=== PATIENT | male | born 1990 | race Hispanic/Latino ===

== ENCOUNTER 2017-07-08 00:38 | Emergency (ER) | payer SELFPAY ==
[2017-07-08 01:52] LABS: AMPHET/METH SCREEN,URINE NEGATIVE (NEGATIVE); BARBITURATE SCREEN, URINE NEGATIVE (NEGATIVE); BENZODIAZEPINES SCREEN,URINE NEGATIVE (NEGATIVE); CANNABINOID SCREEN,URINE NEGATIVE (NEGATIVE); COCAINE SCREEN,URINE NEGATIVE (NEGATIVE); OPIATE SCREEN,URINE NEGATIVE (NEGATIVE); PHENCYCLIDINE SCREEN,URINE NEGATIVE (NEGATIVE)
== END 2017-07-08 02:13 | disposition home or self-care (01) ==
LOC: EDH 00:38
DX: R07.89 Other chest pain (principal); R06.02 Shortness of breath
CPT/HCPCS: 71045; 80305; 93005

== ENCOUNTER 2017-10-02 03:32 | Emergency (ER) | payer OTHER ==
[2017-10-02] MEDS ORDERED: CEFTRIAXONE SODIUM 500 MG VIAL ONE (04:39)
[2017-10-02] MEDS ORDERED: LIDOCAINE HCL-MPF 1% 2ML VIAL ONE (04:39)
[2017-10-02] MEDS ORDERED: METRONIDAZOLE 500 MG TABLET ONE (04:39)
[2017-10-02] MEDS ORDERED: AZITHROMYCIN 250 MG TABLET PO ONE (04:40)
== END 2017-10-02 05:30 | disposition home or self-care (01) ==
LOC: EDH 03:32
DX: A56.8 Sexually transmitted chlamydial infection of other sites (principal)
CPT/HCPCS: 96372; 99283; J0696; J3490

== ENCOUNTER 2017-10-27 11:46 | Emergency (ER) | payer SELFPAY ==
[2017-10-27 12:16] LABS: APPEARANCE,URINE Clear (CLEAR); BILIRUBIN,URINE Negative (NEGATIVE); COLOR,URINE Yellow (YELLOW); GLUCOSE, URINE (UA) Negative (NEGATIVE); KETONES,URINE Trace mg/dL (NEGATIVE); LEUKOCYTE ESTERASE ,URINE Negative (NEGATIVE); NITRATE,URINE Negative (NEGATIVE); OCCULT BLOOD,URINE Negative (NEGATIVE); PH,URINE 5.5 (5.0-8.0); PROTEIN,URINE POS 1+ (NEGATIVE)
[2017-10-27 12:20] LABS: BACTERIA,URINE Rare /HPF (None Seen); MUCUS,URINE Moderate LPF (None Seen); SQUAMOUS EPITHELIAL CELL,UR Rare /HPF (0-2); WBC,URINE 0-1 /HPF (0-1)
[2017-10-27 12:23] LABS: AMPHET/METH SCREEN,URINE NEGATIVE (NEGATIVE); BARBITURATE SCREEN, URINE NEGATIVE (NEGATIVE); BENZODIAZEPINES SCREEN,URINE NEGATIVE (NEGATIVE); CANNABINOID SCREEN,URINE NEGATIVE (NEGATIVE); COCAINE SCREEN,URINE NEGATIVE (NEGATIVE); OPIATE SCREEN,URINE NEGATIVE (NEGATIVE); PHENCYCLIDINE SCREEN,URINE NEGATIVE (NEGATIVE)
== END 2017-10-27 12:33 | disposition home or self-care (01) ==
LOC: EDH 11:46
DX: F41.1 Generalized anxiety disorder (principal); R07.89 Other chest pain
CPT/HCPCS: 80305; 81001; 93005

== ENCOUNTER 2018-07-03 15:19 | Emergency (ER) | payer OTHER ==
[2018-07-03 17:14] LABS: BASOPHILS % (AUTO) 0.7 % (0.0-5.0); EOSINOPHILS % (AUTO) 5.1 % (0.0-8.0); HEMATOCRIT 42.6 % (42-54); LYMPHOCYTES % (AUTO) 21.3 % (21.0-51.0); MEAN CORPUSCULAR HEMOGLOBIN 28.4 pg (27.0-33.0); MEAN CORPUSCULAR VOLUME 86.2 fL (79-99); MONOCYTES % (AUTO) 8.1 % (3.0-13.0); NEUTROPHILS % (AUTO) 64.8 % (40.0-77.0); PLATELET COUNT (AUTO) 165 K/uL (130-400); RED BLOOD CELL COUNT(AUTO) 4.95 MIL/uL (4.50-6.20); RED CELL DISTRIBUTION WIDTH 14.1 % (11.0-15.5); WHITE BLOOD COUNT (AUTO) 6.6 K/uL (4.8-10.8)
[2018-07-03 17:24] LABS: POTASSIUM 4.8 mmol/L (3.5-5.1)
[2018-07-03 17:35] LABS: APPEARANCE,URINE Clear (CLEAR); BILIRUBIN,URINE Negative (NEGATIVE); COLOR,URINE Yellow (YELLOW); GLUCOSE, URINE (UA) Negative (NEGATIVE); KETONES,URINE Negative (NEGATIVE); LEUKOCYTE ESTERASE ,URINE Negative (NEGATIVE); NITRATE,URINE Negative (NEGATIVE); OCCULT BLOOD,URINE Negative (NEGATIVE); PH,URINE 8.5 (5.0-8.0); PROTEIN,URINE Negative (NEGATIVE); UROBILINOGEN,URINE 0.2 mg/dL (0.2-1.0)
[2018-07-03 17:43] LABS: AMPHET/METH SCREEN,URINE NEGATIVE (NEGATIVE); BARBITURATE SCREEN, URINE NEGATIVE (NEGATIVE); BENZODIAZEPINES SCREEN,URINE NEGATIVE (NEGATIVE); CANNABINOID SCREEN,URINE NEGATIVE (NEGATIVE); COCAINE SCREEN,URINE NEGATIVE (NEGATIVE); OPIATE SCREEN,URINE NEGATIVE (NEGATIVE); PHENCYCLIDINE SCREEN,URINE NEGATIVE (NEGATIVE)
== END 2018-07-03 18:30 | disposition home or self-care (01) ==
LOC: EDH 15:19
DX: F41.9 Anxiety disorder, unspecified (principal); R42 Dizziness and giddiness; F32.9 Major depressive disorder, single episode, unspecified; Z72.0 Tobacco use
CPT/HCPCS: 36415; 71045; 80048; 80305; 81003; 85025; 93005

== ENCOUNTER 2018-10-29 04:32 | Emergency (ER) | payer OTHER ==
[2018-10-29] MEDS ORDERED: DiphenhydrAMINE HCL 50 MG/ML VIAL ONE (05:26)
[2018-10-29] MEDS ORDERED: CEFTRIAXONE SODIUM 500 MG VIAL ONE (05:26)
[2018-10-29] MEDS ORDERED: LIDOCAINE HCL-MPF 1% 2ML VIAL ONE (05:27)
== END 2018-10-29 05:42 | disposition home or self-care (01) ==
LOC: EDH 04:32
DX: F41.9 Anxiety disorder, unspecified (principal); A64 Unspecified sexually transmitted disease; F32.9 Major depressive disorder, single episode, unspecified; Z72.0 Tobacco use
CPT/HCPCS: 87486; 87797; 96372 ×2; 99284; J0696; J1200; J3490

== ENCOUNTER 2019-04-23 03:43 | Emergency (ER) | payer OTHER ==
[2019-04-23] MEDS ORDERED: SODIUM CHLORIDE 0.9% 1000ML 1,000 ML IV ONE (04:28)
[2019-04-23] MEDS ORDERED: DiphenhydrAMINE HCL 50 MG/ML VIAL ONE (04:28)
== END 2019-04-23 05:24 | disposition home or self-care (01) ==
LOC: EDH 03:43
DX: F45.8 Other somatoform disorders (principal); F41.1 Generalized anxiety disorder; F32.9 Major depressive disorder, single episode, unspecified; Z72.0 Tobacco use; Z79.899 Other long term (current) drug therapy
CPT/HCPCS: 96374; 99284; J1200; J7030

== ENCOUNTER 2022-01-18 11:36 | Emergency (ER) | payer OTHER ==
[~2022-01-18] VITALS: Ht 182.9 cm; Wt 87.5 kg
[2022-01-18 11:37] VITALS: BP 139/93
[2022-01-18] MEDS ORDERED: OSEL75 PO (13:15)
== END 2022-01-18 13:52 | disposition home or self-care (01) ==
LOC: EDH 11:36
DX: J10.1 Influenza due to other identified influenza virus with other respiratory manifestations (principal); F41.9 Anxiety disorder, unspecified; Z20.822 Contact with and (suspected) exposure to COVID-19
CPT/HCPCS: 99284; 87635; 87880; 87804 ×2; 93005; C9803

== ENCOUNTER 2024-03-05 14:27 | Emergency (ER) | payer SELFPAY ==
[~2024-03-05] VITALS: Ht 182.9 cm; Wt 85.3 kg
[~2024-03-05 14:27] MED LIST: OSEL75 PO
[2024-03-05 14:28] VITALS: BP 129/85; PULSE 99; RESP 16; TEMP 98.6; O2SAT 98
[2024-03-05 15:02] LABS: INFLUENZA TYPE A Negative For Type A (NEGATIVE); INFLUENZA TYPE B Negative For Type B (NEGATIVE)
[2024-03-05 15:04] LABS: SARS-CoV-2, RNA, NAAT NEGATIVE SARS CoV-2 (NEGATIVE)
[2024-03-05 15:13] LABS: RAPID GROUP A STREP positive (NEGATIVE)
--- NOTE | 2024-03-05 15:18 | HMCIMG ---
INDICATION: cough TECHNIQUE: CHEST 1VW COMPARISON: 07/03/2018 FINDINGS/IMPRESSION: Prominent bilateral interstitial markings which may represent bronchitis or vascular congestion in the proper clinical setting. Cardiac silhouette is within normal limits. Mild degenerative changes of the spine. The visualized upper abdomen appears unremarkable.
[2024-03-05] MEDS ORDERED: PRED20TA3 PO (15:29)
[2024-03-05] MEDS ORDERED: AZIT250T9 PO (15:29)
--- NOTE | 2024-03-05 15:29 | ERN ---
ED Note History of Present Illness Stated Complaint: COUGH, FEVER Chief Complaint: Cough Time Seen by MD: 14:29 Dictation: 33-year-old male no past medical history presenting to the emergency department with one week of cold congestion and body aches. 12/03 constant with positive sick contacts at home. Allergies: Coded Allergies: No Known Allergies (Unverified Allergy, Unknown, 01/18/22) Home Meds Active Scripts Oseltamivir Phosphate (Tamiflu) 75 Mg Cap, 75 MG PO BID for 5 Days, #10 CAP Prov:LUCIA DUBON [employer] 01/18/22 Past Medical History Past Medical History: Anxiety Surgical History: None Review of System Dictation Constitutional: Per HPI Eyes: Negative for injury, pain,redness, and discharge ENT: Negative for injury,pain or swelling Cardiovascular: Negative for chest pain, palpitations, and edema Respiratory: Per HPI Abdomen/GI: Negative for abdominal pain, nausea, vomiting, diarrhea, and constipation Back: Negative for injury and pain : Negative for injury, bleeding and discharge MS/Extremity: Negative for injury and deformity Skin: Negative for rash, and discoloration Neuro: Negative for headache, weakness, numbness, tingling, and seizure Psych: Negative for suicide ideation, homicidal ideation, and hallucinations Initial Vital Sign VS Vital Signs Date Time Temp Pulse Resp B/P (MAP) Pulse Ox O2 Delivery O2 Flow Rate FiO2 03/05/24 14:28 98.6 99 16 129/85 98 Room Air 0 03/05/24 14:28 21 Physical Exam Dictation General: awake, alert, NAD Head/Face: Normocephalic, atraumatic Eyes: PERRL, EOMI, vision at baseline ENT: oral cavity clear, TMs clear, erythema to the posterior pharynx Neck: Trachea midline, supple, no nuchal rigidity Cardiovascular: RRR, normal S1/S2, No MRGs, no JVD Respiratory: CTAB, no respiratory distress, No rales or wheezes Abdomen: Soft, non-tender, non-distended, normal bowel sounds, no guarding or rebound. Skin: Warm, dry, normal turgor, no rash MS/Extremity: Pulses equal, no cyanosis, neurovascular intact, FROM Neuro: COAx4, GCS 15, strength 5/5, CN 2-12 intact, normal cerebellar exam, normal gait, Psych: Normal behavior, mood, and affect normal Results (Laboratory/Radiology) Laboratory/Radiology Laboratory Tests Test 03/05/24 14:30 Influenza Type A Antigen Negative For Type A Influenza Type B Antigen Negative For Type B SARS-CoV-2, RNA, NAAT NEGATIVE SARS CoV-2 Group A Streptococcus Rapid positive (NEGATIVE) *A Labs Reviewed?: Yes ED Course ED Course Orders Procedure Category Date Status Time Covid Rna Naat LAB 03/05/24 Complete 14:30 Influenza Type A & B, LAB 03/05/24 Complete Rapid 14:30 Rapid (Group A Strep) LAB 03/05/24 Complete 14:30 Chest 1vw RAD 03/05/24 Resulted 14:49 Vital Signs Date Time Temp Pulse Resp B/P (MAP) Pulse Ox O2 Delivery O2 Flow Rate FiO2 03/05/24 14:28 98.6 99 16 129/85 98 Room Air* 0 21 03/05/24 14:28 98.6 99 16 129/85 98 Room Air 0 Medical Decision Making MDM MDM: Differential diagnosis: Rationale: Tests considered and ordered secondary to shared decision making include: Previous outside records reviewed: Old ER visits. Risk of complication and/or morbidity or mortality of patient management: None Medications-Per medication reconciliation Need for hospitalization: Patient does not meet criteria for hospitalization. Need for emergency major/minor surgery: No There are no social concerns with this patient. Prescription drug management Prescriptions will include symptomatic care Patient's prior external medical records from other ER visits were reviewed by me as indicated. Prior testing and results from previous visits were reviewed. Prior tests were taken into account with medical decision making and resource utilization, independent historian/historians were used to obtain complete medical history. I independently interpreted the test that were performed, results were reviewed by me and considered findings on radiology if ordered. Medical management and examination interpretation discussions were had by me with other qualified healthcare professionals as indicated for the patient's care. 33-year-old with strep, stable exam vital signs stable prescriptions given stable for discharge. DX & DISP Disposition: Discharge Departure Impression: Primary Impression: Acute pharyngitis Condition: Stable Scripts Prednisone (Prednisone) 20 Mg Tablet 1 TAB PO DAILY for 5 Days, #5 TAB 0 Refills TAKE 1 TAB BY MOUTH THREE TIMES PER DAY X3 DAYS, THEN TAKE 1 TAB BY MOUTH TWICE A DAY X2 DAYS, THEN TAKE 1 TAB BY MOUTH ONCE A DAY X1 DAY. Prov: ERIC THORPE MD 03/05/24 Azithromycin (Azithromycin) 250 Mg Tablet 250 MG PO AD for cough for 5 Days, #6 TAB Prov: ERIC THORPE MD 03/05/24 Referrals: KEVIN ANN (PCP) ERIC THORPE MD Mar 05, 2024 15:29
[2024-03-05] MEDS: cefTRIAXone 1G VIAL IM ONE (15:41)
== END 2024-03-05 15:58 | disposition home or self-care (01) ==
LOC: EDH 14:27
DX: J02.9 Acute pharyngitis, unspecified (principal); F41.9 Anxiety disorder, unspecified; Z20.822 Contact with and (suspected) exposure to COVID-19
CPT/HCPCS: 99284; 71045; 87635; 87880; 87804 ×2; 96372; J0696

== ENCOUNTER 2024-10-14 04:00 | Emergency (ER) | payer SELFPAY ==
[~2024-10-14] VITALS: Ht 182.9 cm; Wt 81.6 kg
[~2024-10-14 04:00] MED LIST changes: +AZIT250T9 PO; +PRED20TA3 PO
[2024-10-14 04:01] VITALS: BP_DIAS 91
[2024-10-14 04:18] VITALS: BP_SYST 0; PULSE 75; RESP 18; TEMP 98.8; O2SAT 98
--- NOTE | 2024-10-14 04:32 | ERN ---
General Chief Complaint: Hemorrhoids Stated Complaint: RECTAL PAIN Time Seen by MD: 04:30 Source: patient History of Present Illness Initial Comments Healthy 34-year-old male with concerns about hemorrhoids. He has had a hemorrhoid on and off for several months now. It pops out when he is constipated and strains to have bowel movements. It pops back in again when he does not strain while defecating. He has changed his diet and that has helped. He comes here with a general concerns about hemorrhoids, potential problems with hemorrhoids and indications for surgery. He shows me a picture that and I can not tell if it is an prolapsed internal hemorrhoid or an external hemorrhoid. Allergies: Coded Allergies: No Known Allergies (Unverified Allergy, Unknown, 01/18/22) Home Meds Active Scripts Prednisone (Prednisone) 20 Mg Tablet, 1 TAB PO DAILY for 5 Days, #5 TAB 0 Refills TAKE 1 TAB BY MOUTH THREE TIMES PER DAY X3 DAYS, THEN TAKE 1 TAB BY MOUTH TWICE A DAY X2 DAYS, THEN TAKE 1 TAB BY MOUTH ONCE A DAY X1 DAY. Prov:ERIC THORPE MD 03/05/24 Azithromycin (Azithromycin) 250 Mg Tablet, 250 MG PO AD for cough for 5 Days, #6 TAB Prov:ERIC THORPE MD 03/05/24 Oseltamivir Phosphate (Tamiflu) 75 Mg Cap, 75 MG PO BID for 5 Days, #10 CAP Prov:LUCIA DUBON NP 01/18/22 Past Medical History Past Medical History: Anxiety Past Surgical History: None ROS Dictation Review of systems is negative. No bright red blood per rectum no fevers no chills no diarrhea no constipation no shortness of breath no chest pain no abdominal pain Physical Exam Rectal Comment Patient has a known derm is healthy in appearance. There are no external hemorrhoids. And there was no prolapsed internal hemorrhoid. MDM I discussed with the patient that hemorrhoids are a relatively benign condition. They are not a precursor to cancer. Usually the symptoms are itching maybe painful maybe burning. Sometimes they can cause spotting of blood on toilet paper when cleaning herself after defecating. Sometimes the bleeding can be enough to cause anemia. They very rarely cause problems that mandate surgery. Indications for surgery could be a thrombosed external hemorrhoid. Strangulated prolapsed internal hemorrhoids. The patient has no surgical indications for hemorrhoidectomy now. I discussed with him a high roughage diet and stool softeners. Discharge the patient from the ED. ED Course Vital Signs Date Time Temp Pulse Resp B/P (MAP) Pulse Ox O2 Delivery O2 Flow Rate FiO2 10/14/24 04:18 98.8 75 18 0/ 98 Room Air* 0 21 10/14/24 04:01 97.9 105 18 142/91 100 Room Air DX & DISP Disposition: Discharge Departure Impression: Primary Impression: Acute hemorrhoid Condition: Stable Additional Instructions: Please follow-up with your primary care physician who can give you a referral to General surgery if these hemorrhoids become too painful to endure or are causing too much bleeding. Referrals: SELF,REFERRAL (PCP) BRICE MYERS MD Oct 14, 2024 04:32
== END 2024-10-14 05:00 | disposition home or self-care (01) ==
LOC: EDH 04:00
DX: K64.9 Unspecified hemorrhoids (principal); F41.9 Anxiety disorder, unspecified; Z79.52 Long term (current) use of systemic steroids
CPT/HCPCS: 99281; 99282

== ENCOUNTER 2024-11-28 16:53 | Emergency (ER) | payer SELFPAY ==
[~2024-11-28] VITALS: Ht 182.9 cm
[2024-11-28 17:16] VITALS: BP 130/75; PULSE 75; RESP 16; TEMP 98.1; O2SAT 98
[2024-11-28 17:20] LABS: IMMATURE GRANULOCYTE ABSOLUTE 0.03 K/uL (0-1); NUCLEATED RED BLOOD CELLS 0.0 % (0.0-0.19); PLATELET COUNT (AUTO) 180 K/uL (130-400); RED BLOOD CELL COUNT(AUTO) 4.98 MIL/uL (4.50-6.20); RED CELL DISTRIBUTION WIDTH 13.7 % (11.0-15.5); WHITE BLOOD COUNT (AUTO) 7.8 K/uL (4.8-10.8)
[2024-11-28 17:28] LABS: CREATININE 1.0 mg/dL (0.5-1.3); GLOMERULAR FILTR. RATE CALC 101.0 mL/min (>90); GLUCOSE,RANDOM 106.0 mg/dL (70-105); SODIUM SERUM 141.0 mmol/L (136-145); UREA NITROGEN, BLOOD 11.0 mg/dL (7-18)
[2024-11-28 17:40] LABS: APPEARANCE,URINE CLEAR (CLEAR); GLUCOSE, URINE (UA) NEGATIVE (NEGATIVE); LEUKOCYTE ESTERASE ,URINE NEGATIVE Leu/uL (NEGATIVE); NITRATE,URINE NEGATIVE (NEGATIVE); OCCULT BLOOD,URINE NEGATIVE (NEGATIVE)
[2024-11-28 17:43] LABS: ADD UA MICROSCOPIC YES; SQUAMOUS EPITHELIAL CELL,UR RARE /HPF (0-2)
[2024-11-28] MEDS: 0.9%NACL 1000ML 1,000 ML IV STA (17:43)
--- NOTE | 2024-11-28 17:45 | HMCIMG ---
EXAM: CT Abdomen and Pelvis without Intravenous Contrast CLINICAL HISTORY: 34-year-old male left lower quadrant pain TECHNIQUE: Axial computed tomography images of the abdomen and pelvis without intravenous contrast. Dose reduction technique was used including one or more of the following: automated exposure control, adjustment of mA and kV according to patient size, and/or iterative reconstruction. CONTRAST: None COMPARISON: None provided. FINDINGS: LUNG BASES: No basilar airspace consolidation or pleural effusion. LIVER: Unremarkable. GALLBLADDER AND BILE DUCTS: Unremarkable. No calcified stone. No ductal dilation. PANCREAS: Unremarkable. SPLEEN: Unremarkable. ADRENAL GLANDS: Unremarkable. KIDNEYS, URETERS, AND BLADDER: Unremarkable. No hydronephrosis or nephrolithiasis. No ureteral or bladder calculi. STOMACH AND BOWEL: No obstruction. No wall thickening. No CT evidence of colitis or acute diverticulitis. Fat-containing lesion with fat stranding around the left colon, image number 59 of [id number], suggesting epiploic appendagitis. APPENDIX: Normal appendix. No CT evidence for appendicitis. PERITONEUM: No free fluid. No free air. LYMPH NODES: No lymphadenopathy. REPRODUCTIVE: Unremarkable as visualized. VASCULATURE: No aortic aneurysm. ABDOMINAL WALL AND SOFT TISSUES: Unremarkable. BONES: No fracture or suspicious osseous abnormality. IMPRESSION: 1. Findings consistent with epiploic appendagitis in the left lower quadrant. /[address]
[2024-11-28] MEDS ORDERED: NAPR-1180 PO (18:23)
--- NOTE | 2024-11-28 18:23 | ERN ---
ED Note History of Present Illness Stated Complaint: LLQ PAIN Chief Complaint: Abdominal Pain Time Seen by MD: 16:57 Time Seen by Midlevel: 17:00 Dictation: 34-year-old male coming in with complaints of left lower quadrant pain onset for the last 2-3 days. Denies any fever, nausea or vomiting or diarrhea. Denies any hematuria or dysuria. Allergies: Coded Allergies: No Known Allergies (Unverified Allergy, Unknown, 01/18/22) Home Meds Active Scripts Prednisone (Prednisone) 20 Mg Tablet, 1 TAB PO DAILY for 5 Days, #5 TAB 0 Refills TAKE 1 TAB BY MOUTH THREE TIMES PER DAY X3 DAYS, THEN TAKE 1 TAB BY MOUTH TWICE A DAY X2 DAYS, THEN TAKE 1 TAB BY MOUTH ONCE A DAY X1 DAY. Prov:ERIC THORPE MD 03/05/24 Azithromycin (Azithromycin) 250 Mg Tablet, 250 MG PO AD for cough for 5 Days, #6 TAB Prov:ERIC THORPE MD 03/05/24 Oseltamivir Phosphate (Tamiflu) 75 Mg Cap, 75 MG PO BID for 5 Days, #10 CAP Prov:LUCIA DUBON NP 01/18/22 Past Medical History Past Medical History: Anxiety Surgical History: None Review of System Dictation Constitutional: Negative for fever,chills, and weight loss Eyes: Negative for injury, pain,redness, and discharge ENT: Negative for injury,pain or swelling Cardiovascular: Negative for chest pain, palpitations, and edema Respiratory: Negative for shortness of breath, cough, and wheezing, Abdomen/GI: Left lower quadrant pain Back: Negative for injury and pain : Negative for injury, bleeding and discharge MS/Extremity: Negative for injury and deformity Skin: Negative for rash, and discoloration Neuro: Negative for headache, weakness, numbness, tingling, and seizure Psych: Negative for suicide ideation, homicidal ideation, and hallucinations Review of Systems: was completed Initial Vital Sign VS Vital Signs Date Time Temp Pulse Resp B/P (MAP) Pulse Ox O2 Delivery O2 Flow Rate FiO2 11/28/24 16:54 98.4 80 16 130/77 98 Room Air 0 11/28/24 17:16 21 Physical Exam Dictation General: awake, alert, NAD Head/Face: Normocephalic, atraumatic Eyes: PERRL, EOMI, vision at baseline ENT: oral cavity clear, TMs clear, no signs of infection Neck: Trachea midline, supple, no nuchal rigidity Cardiovascular: RRR, normal S1/S2, No MRGs, no JVD Respiratory: CTAB, no respiratory distress, No rales or wheezes Abdomen: Soft, non-tender, non-distended, normal bowel sounds, no guarding or rebound. Skin: Warm, dry, normal turgor, no rash MS/Extremity: Pulses equal, no cyanosis, neurovascular intact, FROM Neuro: COAx4, GCS 15, strength 5/5, CN 2-12 intact, normal cerebellar exam, normal gait, Psych: Normal behavior, mood, and affect normal Results (Laboratory/Radiology) Laboratory/Radiology Laboratory Tests Test 11/28/24 17:12 11/28/24 17:25 White Blood Count 7.8 K/uL (4.8-10.8) Red Blood Count 4.98 MIL/uL (4.50-6.20) Hemoglobin 14.1 g/dL (14.0-18.0) Hematocrit 42.6 % (42-54) Mean Corpuscular Volume 85.5 fL (79-99) Mean Corpuscular Hemoglobin 28.3 pg (27.0-33.0) Mean Corpuscular Hemoglobin Concent 33.1 g/dL (32.0-36.0) Red Cell Distribution Width 13.7 % (11.0-15.5) Platelet Count 180 K/uL (130-400) Mean Platelet Volume 11.1 fL (7.5-10.5) H Immature Granulocyte % (Auto) 0.4 % (0-1) Neutrophils (%) (Auto) 60.2 % (40.0-77.0) Lymphocytes (%) (Auto) 27.2 % (21.0-51.0) Monocytes (%) (Auto) 6.9 % (3.0-13.0) Eosinophils (%) (Auto) 4.7 % (0.0-8.0) Basophils (%) (Auto) 0.6 % (0.0-5.0) Neutrophils # (Auto) 4.7 K/uL (1.8-7.7) Lymphocytes # (Auto) 2.1 K/uL (1.0-4.8) Monocytes # (Auto) 0.5 K/uL (0.1-1.0) Eosinophils # (Auto) 0.37 K/uL (0.00-0.70) Basophils # (Auto) 0.05 K/uL (0.00-0.20) Absolute Immature Granulocyte (auto 0.03 K/uL (0-1) Nucleated Red Blood Cells 0.0 % (0.0-0.19) Sodium Level 141 mmol/L (136-145) Potassium Level 3.8 mmol/L (3.5-5.1) Chloride Level 104 mmol/L (101-111) Carbon Dioxide Level 33 mmol/L (21-32) H Blood Urea Nitrogen 11 mg/dL (7-18) Creatinine 1.0 mg/dL (0.5-1.3) Glomerular Filtration Rate Calc 101 mL/min (>90) Random Glucose 106 mg/dL (70-105) H Total Calcium 8.5 mg/dL (8.5-10.1) Urine Color YELLOW (YELLOW) Urine Appearance CLEAR (CLEAR) Urine pH 5.5 (5.0-8.0) Urine Specific [place] 1.029 (1.001-1.031) Urine Protein 20 mg/dL (NEGATIVE) H Urine Glucose (UA) NEGATIVE mg/dL (NEGATIVE) Urine Ketones NEGATIVE mg/dL (NEGATIVE) Urine Occult Blood NEGATIVE (NEGATIVE) Urine Nitrate NEGATIVE (NEGATIVE) Urine Bilirubin NEGATIVE mg/dL (NEGATIVE) Urine Urobilinogen 0.2 mg/dL (0.2-1.0) Urine Leukocyte Esterase NEGATIVE Venkatesh/uL Urine RBC 2-5 /HPF (0-1) H Urine WBC 0-1 /HPF (0-1) Urine Squamous Epithelial Cells RARE /HPF (0-2) Urine Bacteria RARE /HPF (None Seen) Labs Reviewed?: Yes CT Scan Comment: [place] [id number] [id number] IMAGING REPORT Signed PATIENT: ALFREDA GREY MR#: [id number] : 1990 SEX: M AGE: 34 LOCATION: ED ORDER 02 STATUS: REG ER REPORT#: [id number] SERVICE [id number] REASON: llq pain ORDERING PHYSICIAN: MONICA PIERSON NP PROCEDURE: ABD PEL WO - CT ABDOMEN/PELVIS W/O CONTRAST EXAM: CT Abdomen and Pelvis without Intravenous Contrast CLINICAL HISTORY: 34-year-old male left lower quadrant pain TECHNIQUE: Axial computed tomography images of the abdomen and pelvis without intravenous contrast. Dose reduction technique was used including one or more of the following: automated exposure control, adjustment of mA and kV according to patient size, and/or iterative reconstruction. CONTRAST: None COMPARISON: None provided. FINDINGS: LUNG BASES: No basilar airspace consolidation or pleural effusion. LIVER: Unremarkable. GALLBLADDER AND BILE DUCTS: Unremarkable. No calcified stone. No ductal dilation. PANCREAS: Unremarkable. SPLEEN: Unremarkable. ADRENAL GLANDS: Unremarkable. KIDNEYS, URETERS, AND BLADDER: Unremarkable. No hydronephrosis or nephrolithiasis. No ureteral or bladder calculi. STOMACH AND BOWEL: No obstruction. No wall thickening. No CT evidence of colitis or acute diverticulitis. Fat-containing lesion with fat stranding around the left colon, image number 59 of [id number], suggesting epiploic appendagitis. APPENDIX: Normal appendix. No CT evidence for appendicitis. PERITONEUM: No free fluid. No free air. LYMPH NODES: No lymphadenopathy. REPRODUCTIVE: Unremarkable as visualized. VASCULATURE: No aortic aneurysm. ABDOMINAL WALL AND SOFT TISSUES: Unremarkable. BONES: No fracture or suspicious osseous abnormality. IMPRESSION: 1. Findings consistent with epiploic appendagitis in the left lower quadrant. /[place] DICTATED BY: YESIKA MASTERS MD DATE: 11/28/241843 ELECTRONICALLY SIGNED BY: YESIKA MASTERS MD DATE: 11/28/241843 ED Course ED Course Orders Procedure Category Date Status Time Cbc With Differential LAB 11/28/24 Complete 17: Basic Metabolic Panel LAB 11/28/24 Complete 17:01 Urinalysis Profile LAB 11/28/24 Complete 17:01 Ct Abdomen/Pelvis W/O CT 11/28/24 Resulted Contrast 17:01 0.9%Nacl 1000ml (Ns PHA 11/28/24 Complete 1000ml) 17:01 Morphine 2mg Syg PHA 11/28/24 Complete (Morphine 2mg Syg) 17:01 Ondansetron 4mg Inj PHA 11/28/24 Complete (Zofran 4mg Inj) 17:01 Current Medications Medications (Trade) Dose Ordered Sig/Jeanne Route PRN Reason Start Time Stop Time Status Last Admin Dose Admin Morphine Sulfate (morPHINE 2MG SYG) 2 mg ONCE STAT IVP 11/28/24 17:01 11/28/24 17:06 DC 11/28/24 17:43 Ondansetron HCl (zoFRAN 4MG INJ) 4 mg ONCE STAT IVP 11/28/24 17:01 11/28/24 17:06 DC 11/28/24 17:43 Sodium Chloride 1,000 ml @ 1,000 mls/hr Q1H STAT IV 11/28/24 17:01 11/28/24 18:00 DC 11/28/24 17:43 Vital Signs Date Time Temp Pulse Resp B/P (MAP) Pulse Ox O2 Delivery O2 Flow Rate FiO2 11/28/24 17:16 98.1 75 16 130/75 98 Room Air* 0 21 11/28/24 16:54 98.4 80 16 130/77 98 Room Air 0 Medical Decision Making MDM MDM:34-year-old male coming in with complaints of left lower quadrant pain onset for the last 2-3 days. Denies any fever, nausea or vomiting or diarrhea. Denies any hematuria or dysuria. Blood work unremarkable. CT scan shows epiploic appendagitis. Discussed with the patient this is not an emergency they came from follow up outpatient with PCP and I will prescribe him and says to take [id number]. Educated on signs and symptoms of return back to the emergency room and follow up with his PCP. Patient verbalized understanding, answered all questions. Differential diagnosis: Diverticulitis, diverticulosis, constipation, kidney stone Rationale: Tests considered and ordered secondary to shared decision making include: Previous outside records reviewed: Old ER visits. Risk of complication and/or morbidity or mortality of patient management: None Medications-Per medication reconciliation Need for hospitalization: Patient does not meet criteria for hospitalization. Need for emergency major/minor surgery: No There are no social concerns with this patient. Prescription drug management Prescriptions will include symptomatic care Patient's prior external medical records from other ER visits were reviewed by me as indicated. Prior testing and results from previous visits were reviewed. Prior tests were taken into account with medical decision making and resource utilization, independent historian/historians were used to obtain complete medical history. I independently interpreted the test that were performed, results were reviewed by me and considered findings on radiology if ordered. Medical management and examination interpretation discussions were had by me with other qualified healthcare professionals as indicated for the patient's care. DX & DISP Disposition: Discharge Departure Impression: Primary Impression: Epiploic appendagitis Condition: Stable Scripts Naproxen (Naprosyn) 500 Mg Tablet 500 MG PO BIDPC for 10 Days, #20 TAB 0 Refills Prov: MONICA PIERSON NP 11/28/24 Additional Instructions: Increase fluid intake stay hydrated. Take medication for pain as prescribed. Follow up with PCP. Return for the hospital if any worsening symptoms. Referrals: KEVIN ANN (PCP) Time of Disposition: 18:22 I have reviewed the case, and I agree with, Diagnosis and Plan MONICA PIERSON NP Nov 28, 2024 18:23
--- NOTE | 2024-11-28 18:27 | NUR ---
PT REFUSED MORPHIE AT TIME OF ADMINISTRATION
== END 2024-11-28 18:37 | disposition home or self-care (01) ==
LOC: EDH 16:53
DX: K63.89 Other specified diseases of intestine (principal); F41.9 Anxiety disorder, unspecified; Z79.52 Long term (current) use of systemic steroids; Z79.899 Other long term (current) drug therapy
CPT/HCPCS: 99285; 74176; 96374; 96375; 80048; 85025; 81001; 36415; J2270; J7030; J2405

== ENCOUNTER 2024-12-11 07:59 | Emergency (ER) | payer SELFPAY ==
[~2024-12-11] VITALS: Ht 182.9 cm; Wt 93.0 kg
[~2024-12-11 07:59] MED LIST changes: +NAPR-1180 PO
[2024-12-11 08:00] VITALS: TEMP 97.9
--- NOTE | 2024-12-11 08:27 | ERN ---
General Chief Complaint: Flank Pain Stated Complaint: FLANK PAIN, LLQ PAIN Time Seen by MD: 08:00 Source: patient History of Present Illness Initial Comments Patient is a 34-year-old male coming in complaining of left flank pain. Patient states that he was evaluated before and was told had "appendagitis". He states that has pain improved with the medication couple of days ago resurface the medication Allergies: Coded Allergies: No Known Allergies (Unverified Allergy, Unknown, 01/18/22) Home Meds Active Scripts Naproxen (Naprosyn) 500 Mg Tablet, 500 MG PO BIDPC for 10 Days, #20 TAB 0 Refills Prov:MONICA PIERSON NP 11/28/24 Prednisone (Prednisone) 20 Mg Tablet, 1 TAB PO DAILY for 5 Days, #5 TAB 0 Refills TAKE 1 TAB BY MOUTH THREE TIMES PER DAY X3 DAYS, THEN TAKE 1 TAB BY MOUTH TWICE A DAY X2 DAYS, THEN TAKE 1 TAB BY MOUTH ONCE A DAY X1 DAY. Prov:ERIC THORPE MD 03/05/24 Azithromycin (Azithromycin) 250 Mg Tablet, 250 MG PO AD for cough for 5 Days, #6 TAB Prov:ERIC THORPE MD 03/05/24 Oseltamivir Phosphate (Tamiflu) 75 Mg Cap, 75 MG PO BID for 5 Days, #10 CAP Prov:LUCIA DUBON CALLISTHENICS INSTRUCTOR 01/18/22 Past Medical History Past Medical History: Anxiety Past Surgical History: None ROS Dictation CONSTITUTIONAL: NO CHILLS, NO FEVER, NO WEAKNESS, NO DIAPHORESIS, NO MALAISE. HEAD/FACE: NO SIGNS OF TRAUMA. EENT: NO EYE PAIN, NO BLURRED VISION, NO TEARING, NO DOUBLE VISION, NO EAR PAIN, NO EAR DISCHARGE, NO NOSE PAIN, NO NASAL CONGESTION, NO THROAT PAIN, NO THROAT SWELLING, NO MOUTH PAIN. RESPIRATORY: NO COUGH, NO ORTHOPNEA, NO SOB, NO STRIDOR, NO WHEEZING. CARDIOVASCULAR: NO CHEST PAIN, NO EDEMA, NO PALPITATIONS, NO SYNCOPE. GASTROINTESTINAL/ABDOMINAL: NO ABDOMINAL PAIN, NO CONSTIPATION, NO DIARRHEA, NO NAUSEA, NO VOMITING. GENITOURINARY: NO ABNORMAL DISCHARGE, NO DYSURIA, NO FREQUENT URINATION, NO HEMATURIA. NO COMPLAINTS OF PAIN IN THE GENITALS. MUSCULOSKELETAL: NO BACK PAIN, NO GOUT, NO JOINT PAIN, NO JOINT SWELLING, NO MUSCLE PAIN, NO MUSCLE STIFFNESS, NO NECK PAIN. INTEGUMENTARY: NO CHANGE IN COLOR, NO CHANGE IN HAIR/NAILS, NO DRYNESS, NO LESION, NO LUMPS, NO RASH. NEUROLOGICAL/PSYCH: NO ANXIETY, NOT DEPRESSED, NO EMOTIONAL PROBLEM, NO HEADACHE, NO NUMBNESS, NO PRE-EXISTING DEFICIT, NO HISTORY OF SEIZURES, NO TREMORS, NO WEAKNESS. HEMATOLOGIC/LYMPHATIC: NOT ANEMIC, NO HISTORY OF BLOOD CLOTS, NO APPARENT BLEEDING, NO BRUISING, GLANDS NOT SWOLLEN. ALL SYSTEMS NEGATIVE, EXCEPT NOTED. Physical Exam Physical Exam Dictation VITAL SIGNS: REVIEWED. GENERAL APPEARANCE: ALERT, ORIENTED X3, NO ACUTE DISTRESS, OBESE. HEAD AND FACE: NON-TRAUMATIC. EYES: PERRL, PINK CONJUNCTIVAS, EYELID NO TRAUMA, ANTERIOR CHAMBER CLEAR. EARS: PINNAS INTACT AND NO SIGNS OF TRAUMA OR ERYTHEMA. EAR CANALS CLEAR AND NO DISCHARGE. TMS NO ERYTHEMA. NOSE: NO DISCHARGE, NO BLEEDING. OROPHARYNX: MOUTH NORMAL, TEETH NO CARIES, TONGUE PINK. PHARYNX CLEAR, NO ERYTHEMA. TONSILS NO EXUDATES, NO ABSCESSES NOTED. MUCOUS MEMBRANE MOIST. NECK: SUPPLE, NON-TENDER, NO THYROMEGALY, NO MASSES, NO JVD, NO BRUITS. BREAST: DEFERRED. CHEST: NO TENDERNESS, NO CREPITUS, NO PARADOXICAL MOVEMENT, NO RETRACTIONS. LUNGS: CLEAR, WELL-VENTILATED, SYMMETRIC, NO RALES, NO WHEEZING, NO RHONCHI, NO STRIDOR, GOOD BREATH SOUNDS BILATERALLY. HEART: REGULAR RATE, REGULAR RHYTHM, NO MURMUR, NO GALLOPS. VASCULAR: NO PERIPHERAL EDEMA. ABDOMEN: SOFT, POSITIVE BOWEL SOUNDS, NONDISTENDED, NO GUARDING, NONTENDER, NO REBOUND, NO MASSES NO HEPATOMEGALY, NO SPLENOMEGALY, NO MOHAMUD'S SIGN, NO HERNIAS. RECTAL: DEFERRED. GENITAL: DEFERRED. NEUROLOGICAL: NORMAL SPEECH, GROSS MOTOR FUNCTION INTACT, GROSS SENSORY FUNCTION INTACT. MUSCULOSKELETAL: NECK NONTENDER, FULL RANGE OF MOTION, BACK NONTENDER, FULL RANGE OF MOTION. EXTREMITIES: NONTENDER, FULL RANGE OF MOTION. SKIN: COLOR PINK, DRY, NO TURGOR, NO RASH, NO LACERATIONS, NO ABRASIONS, NO CONTUSIONS. LYMPHATICS: DEFERRED. Results Laboratory and Microbiology Lab and Micro Result Laboratory Tests Test 12/11/24 08:15 White Blood Count 7.0 K/uL (4.8-10.8) Red Blood Count 5.44 MIL/uL (4.50-6.20) Hemoglobin 15.2 g/dL (14.0-18.0) Hematocrit 45.4 % (42-54) Mean Corpuscular Volume 83.5 fL (79-99) Mean Corpuscular Hemoglobin 27.9 pg (27.0-33.0) Mean Corpuscular Hemoglobin Concent 33.5 g/dL (32.0-36.0) Red Cell Distribution Width 13.7 % (11.0-15.5) Platelet Count 196 K/uL (130-400) Mean Platelet Volume 11.6 fL (7.5-10.5) H Immature Granulocyte % (Auto) 0.4 % (0-1) Neutrophils (%) (Auto) 40.9 % (40.0-77.0) Lymphocytes (%) (Auto) 42.2 % (21.0-51.0) Monocytes (%) (Auto) 7.8 % (3.0-13.0) Eosinophils (%) (Auto) 8.0 % (0.0-8.0) Basophils (%) (Auto) 0.7 % (0.0-5.0) Neutrophils # (Auto) 2.9 K/uL (1.8-7.7) Lymphocytes # (Auto) 3.0 K/uL (1.0-4.8) Monocytes # (Auto) 0.6 K/uL (0.1-1.0) Eosinophils # (Auto) 0.56 K/uL (0.00-0.70) Basophils # (Auto) 0.05 K/uL (0.00-0.20) Absolute Immature Granulocyte (auto 0.03 K/uL (0-1) Nucleated Red Blood Cells 0.0 % (0.0-0.19) Urine Color LIGHT-YELLOW (YELLOW) Urine Appearance CLEAR (CLEAR) Urine pH 5.5 (5.0-8.0) Urine Specific [place] 1.023 (1.001-1.031) Urine Protein NEGATIVE mg/dL (NEGATIVE) Urine Glucose (UA) NEGATIVE mg/dL (NEGATIVE) Urine Ketones NEGATIVE mg/dL (NEGATIVE) Urine Occult Blood NEGATIVE (NEGATIVE) Urine Nitrate NEGATIVE (NEGATIVE) Urine Bilirubin NEGATIVE mg/dL (NEGATIVE) Urine Urobilinogen 0.2 mg/dL (0.2-1.0) Urine Leukocyte Esterase NEGATIVE Venkatesh/uL Urine RBC 0-1 /HPF (0-1) Urine WBC 0-1 /HPF (0-1) Urine Bacteria None /HPF (None Seen) Sodium Level 142 mmol/L (136-145) Potassium Level 4.3 mmol/L (3.5-5.1) Chloride Level 104 mmol/L (101-111) Carbon Dioxide Level 29 mmol/L (21-32) Blood Urea Nitrogen 16 mg/dL (7-18) Creatinine 1.0 mg/dL (0.5-1.3) Glomerular Filtration Rate Calc 101 mL/min (>90) Random Glucose 97 mg/dL (70-105) Total Calcium 9.0 mg/dL (8.5-10.1) Labs Reviewed?: Yes EKG/XRAY/US/CT/MRI CT Scan Comment IMAGING REPORT Signed PATIENT: ALFREDA GREY MR#: [id number] : 1990 SEX: M AGE: 34 LOCATION: [facility] ORDER 5 STATUS: REG REPORT#: [id number] SERVICE 08 REASON: left flank pain ORDERING PHYSICIAN: DENISE MARTINEZ MD PROCEDURE: ABD PEL WO - CT ABDOMEN/PELVIS W/O CONTRAST EXAM: CT Abdomen and Pelvis Without IV contrast CLINICAL HISTORY: left flank pain TECHNIQUE: Axial computed tomography images of the abdomen and pelvis without intravenous contrast. CONTRAST: No IV contrast. COMPARISON: None provided. FINDINGS: LUNG BASES: The lung bases appear clear. No pleural effusions are seen. LIVER: Unremarkable. GALLBLADDER AND BILE DUCTS: The gallbladder appears within normal limits. No radioopaque gallstones are seen. No biliary ductal dilatation is evident. PANCREAS: Unremarkable. SPLEEN: Unremarkable. ADRENAL GLANDS: Unremarkable. KIDNEYS, URETERS, AND BLADDER: 2 mm nonobstructing right renal collecting system stone. No additional urinary calculi. No hydronephrosis. Thickening of the urinary bladder which may be due to underdistention or cystitis. STOMACH AND BOWEL: Unremarkable appearance of the stomach and bowel. No evidence of bowel obstruction. No evidence suggesting enteritis or colitis. Small focus of pericolonic fat inflammation adjacent to the sigmoid colon (image 58 series 2) which likely represents mild epiploic appendagitis APPENDIX: Normal appendix. PERITONEUM: No free fluid. No free air. LYMPH NODES: No lymphadenopathy is evident. REPRODUCTIVE: Unremarkable as visualized. VASCULATURE: No evidence of abdominal aortic aneurysm. BONES: No aggressive appearing osseous lesion. No acute osseous pathology evident. IMPRESSION: Small focus of pericolonic fat inflammation adjacent to the sigmoid colon which likely represents mild epiploic appendagitis No bowel obstruction or inflammation. Normal appendix. 2 mm nonobstructing right renal collecting system stone. No additional urinary calculi. No hydronephrosis. Thickening of the urinary bladder which may be due to underdistention or cystitis. /[place] DICTATED BY: SEAN SALVADOR MD DATE: 12/11/24950 ELECTRONICALLY SIGNED BY: SEAN SALVADOR MD DATE: 12/11/24950 [facility] MDM: DIFFERENTIAL DIAGNOSIS: LEFT FLANK PAIN, NEPHROLITHIASIS, CYSTITIS, RATIONALE: TESTS CONSIDERED AND ORDERED SECONDARY TO SHARED DECISION MAKING INCLUDE: PREVIOUS OUTSIDE RECORDS REVIEWED: OLD ER VISITS. RISK OF COMPLICATION AND/OR MORBIDITY OR MORTALITY OF PATIENT MANAGEMENT: NONE MEDICATIONS-PER MEDICATION RECONCILIATION NEED FOR HOSPITALIZATION: PATIENT DOES NOT MEET CRITERIA FOR HOSPITALIZATION. NEED FOR EMERGENCY MAJOR/MINOR SURGERY: NO PATIENT IS A 34-YEAR-OLD MALE COMING IN COMPLAINING OF LEFT FLANK PAIN. CT DID NOT DISCLOSE ACUTE FINDINGS BUT A POSSIBLE LEFT INFRARENAL KIDNEY STONE, AND CYSTITIS. PATIENT WILL BE DISCHARGED IN STABLE CONDITION WITH A DIAGNOSIS OF KIDNEY STONE AND CYSTITIS. ED Course Orders Procedure Category Date Status Time Cbc With Differential LAB 12/11/24 Complete 08:05 Basic Metabolic Panel LAB 12/11/24 Complete 08:05 Urinalysis LAB 12/11/24 Complete W/Microscopic 08:05 Ct Abdomen/Pelvis W/O CT 12/11/24 Resulted Contrast 08:05 Vital Signs Date Time Temp Pulse Resp B/P (MAP) Pulse Ox O2 Delivery O2 Flow Rate FiO2 12/11/24 08:00 97.9 95 16 128/74 99 Room Air 0 DX & DISP Disposition: Discharge Departure Impression: Primary Impression: Cystitis Additional Impression: Kidney stone Condition: Stable Scripts Cephalexin Monohydrate (Keflex) 500 Mg Cap 1 CAP PO BID for 10 Days, #20 CAP 0 Refills Prov: DENISE MARTINEZ MD 12/11/24 Ketorolac Tromethamine (Ketorolac Tromethamine) 10 Mg Tablet 1 TAB PO Q6HPRN PRN for pain for 5 Days, #20 TAB 0 Refills Prov: DENISE MARTINEZ MD 12/11/24 Additional Instructions: FOLLOW-UP WITH PRIMARY CARE PROVIDER IN 1 TO 2 DAYS. TAKE MEDICATIONS DIRECTED HERE IN THE EMERGENCY ROOM. OKAY TO CONTINUE HOME MEDICATIONS UNLESS OTHERWISE DISCUSSED DURING YOUR VISIT IN THE EMERGENCY ROOM TODAY. RETURN TO YOUR NEAREST EMERGENCY ROOM IF SYMPTOMS WORSEN OR IF THERE IS NO IMPROVEMENT. CALL 911 IF YOU NEED IMMEDIATE ASSISTANCE. TAKE TYLENOL [id number] NEEDED AND IF NO CONTRAINDICATIONS ARE PRESENT. INCREASE ORAL HYDRATION. A WOUND CULTURE OR URINE CULTURE WAS ORDERED HERE IN THE EMERGENCY ROOM DEPARTMENT PLEASE FOLLOW-UP WITH PRIMARY CARE PROVIDER AND ADVISE THEM TO GET REPORTS FROM OUR FACILITY. IF YOU HAD ANY VENKATA WRAP/SPLINTS THAT WERE APPLIED HERE, PLEASE DO NOT REMOVE THEM UNTIL YOU SEE YOUR PRIMARY CARE OR SPECIALTY. REFERRALS: Referrals: KEVIN ANN (PCP) JENNY GOLDEN MD Time of Disposition: 08:59 DENISE MARTINEZ MD Dec 11, 2024 08:27
[2024-12-11 08:29] LABS: IMMATURE GRANULOCYTE ABSOLUTE 0.03 K/uL (0-1); NUCLEATED RED BLOOD CELLS 0.0 % (0.0-0.19); PLATELET COUNT (AUTO) 196 K/uL (130-400); RED BLOOD CELL COUNT(AUTO) 5.44 MIL/uL (4.50-6.20); RED CELL DISTRIBUTION WIDTH 13.7 % (11.0-15.5); WHITE BLOOD COUNT (AUTO) 7.0 K/uL (4.8-10.8)
[2024-12-11 08:35] LABS: APPEARANCE,URINE CLEAR (CLEAR); GLUCOSE, URINE (UA) NEGATIVE (NEGATIVE); LEUKOCYTE ESTERASE ,URINE NEGATIVE Leu/uL (NEGATIVE); NITRATE,URINE NEGATIVE (NEGATIVE); OCCULT BLOOD,URINE NEGATIVE (NEGATIVE)
[2024-12-11 08:36] LABS: CREATININE 1.0 mg/dL (0.5-1.3); GLOMERULAR FILTR. RATE CALC 101.0 mL/min (>90); GLUCOSE,RANDOM 97.0 mg/dL (70-105); SODIUM SERUM 142.0 mmol/L (136-145); UREA NITROGEN, BLOOD 16.0 mg/dL (7-18)
--- NOTE | 2024-12-11 08:52 | HMCIMG ---
EXAM: CT Abdomen and Pelvis Without IV contrast CLINICAL HISTORY: left flank pain TECHNIQUE: Axial computed tomography images of the abdomen and pelvis without intravenous contrast. CONTRAST: No IV contrast. COMPARISON: None provided. FINDINGS: LUNG BASES: The lung bases appear clear. No pleural effusions are seen. LIVER: Unremarkable. GALLBLADDER AND BILE DUCTS: The gallbladder appears within normal limits. No radioopaque gallstones are seen. No biliary ductal dilatation is evident. PANCREAS: Unremarkable. SPLEEN: Unremarkable. ADRENAL GLANDS: Unremarkable. KIDNEYS, URETERS, AND BLADDER: 2 mm nonobstructing right renal collecting system stone. No additional urinary calculi. No hydronephrosis. Thickening of the urinary bladder which may be due to underdistention or cystitis. STOMACH AND BOWEL: Unremarkable appearance of the stomach and bowel. No evidence of bowel obstruction. No evidence suggesting enteritis or colitis. Small focus of pericolonic fat inflammation adjacent to the sigmoid colon (image 58 series 2) which likely represents mild epiploic appendagitis APPENDIX: Normal appendix. PERITONEUM: No free fluid. No free air. LYMPH NODES: No lymphadenopathy is evident. REPRODUCTIVE: Unremarkable as visualized. VASCULATURE: No evidence of abdominal aortic aneurysm. BONES: No aggressive appearing osseous lesion. No acute osseous pathology evident. IMPRESSION: Small focus of pericolonic fat inflammation adjacent to the sigmoid colon which likely represents mild epiploic appendagitis No bowel obstruction or inflammation. Normal appendix. 2 mm nonobstructing right renal collecting system stone. No additional urinary calculi. No hydronephrosis. Thickening of the urinary bladder which may be due to underdistention or cystitis. /[place]
[2024-12-11] MEDS ORDERED: CEPH500B PO (09:00)
[2024-12-11] MEDS ORDERED: KETO10TA2 PO (09:00)
[2024-12-11 09:03] VITALS: BP 114/71; PULSE 89; RESP 16; O2SAT 98
== END 2024-12-11 09:15 | disposition home or self-care (01) ==
LOC: EDH 07:59
DX: N30.90 Cystitis, unspecified without hematuria (principal); N20.0 Calculus of kidney; Z79.52 Long term (current) use of systemic steroids
CPT/HCPCS: 36415; 74176; 80048; 81001; 85025; 99284

== ENCOUNTER 2024-12-20 12:02 | Emergency (ER) | payer SELFPAY ==
[~2024-12-20] VITALS: Ht 182.9 cm; Wt 90.7 kg
[~2024-12-20 12:02] MED LIST changes: +CEPH500B PO; +KETO10TA2 PO
--- NOTE | 2024-12-20 14:09 | HMCIMG ---
EXAM: US Scrotum. CLINICAL HISTORY: TESTICLE PAIN TECHNIQUE: Real-time ultrasound of the scrotum with color Doppler and image documentation. COMPARISON: None provided. FINDINGS: RIGHT TESTICLE: Normal in size (measures 3.9 x 2.3 x 2.9 cm) and echogenicity. No abnormal mass. Normal Doppler flow. LEFT TESTICLE: Normal in size (measuring 4 x 1.9 x 2.9 cm) and echogenicity. No abnormal mass. Normal Doppler flow. EPIDIDYMIDES: Visualized aspects of both epididymides appear within normal limits. Please note that the tail of the right epididymis is obscured. SCROTUM: Unremarkable. No hydrocele, varicocele, or extratesticular mass seen. IMPRESSION: 1. No acute scrotal abnormalities. /[place]
--- NOTE | 2024-12-20 14:31 | ERN ---
General Chief Complaint: Testicular Injury/Pain Stated Complaint: TESTICULAR PAIN Time Seen by MD: 12:06 Source: patient History of Present Illness Initial Comments PATIENT IS A 34-YEAR-OLD MALE COMING IN COMPLAINING OF POSSIBLE STD. PER PATIENT HE STATES THAT HE MIGHT HAVE AN STD IS HERE FOR FURTHER EVALUATION. HE WAS EVALUATED A WEEK AGO WAS DIAGNOSED WITH A KIDNEY STONE BUT STATES HE FOLLOW UP WITH THE PCP IN HIS PCP STATES THAT THE LABS ARE STILL PENDING FOR A STD CHECK. Allergies: Coded Allergies: No Known Allergies (Unverified Allergy, Unknown, 01/18/22) Home Meds Active Scripts Cephalexin Monohydrate (Keflex) 500 Mg Cap, 1 CAP PO BID for 10 Days, #20 CAP 0 Refills Prov:DENISE MARTINEZ MD 12/11/24 Ketorolac Tromethamine (Ketorolac Tromethamine) 10 Mg Tablet, 1 TAB PO Q6HPRN PRN for pain for 5 Days, #20 TAB 0 Refills Prov:DENISE MARTINEZ MD 12/11/24 Naproxen (Naprosyn) 500 Mg Tablet, 500 MG PO BIDPC for 10 Days, #20 TAB 0 Refills Prov:MONICA PIERSON NP 11/28/24 Prednisone (Prednisone) 20 Mg Tablet, 1 TAB PO DAILY for 5 Days, #5 TAB 0 Refills TAKE 1 TAB BY MOUTH THREE TIMES PER DAY X3 DAYS, THEN TAKE 1 TAB BY MOUTH TWICE A DAY X2 DAYS, THEN TAKE 1 TAB BY MOUTH ONCE A DAY X1 DAY. Prov:ERIC THORPE MD 03/05/24 Azithromycin (Azithromycin) 250 Mg Tablet, 250 MG PO AD for cough for 5 Days, #6 TAB Prov:ERIC THORPE MD 03/05/24 Oseltamivir Phosphate (Tamiflu) 75 Mg Cap, 75 MG PO BID for 5 Days, #10 CAP Prov:LUCIA DUBON CAR CONSTRUCTION SUPERINTENDENT 01/18/22 Past Medical History Past Medical History: Anxiety, Kidney Stone Past Surgical History: None ROS Dictation CONSTITUTIONAL: NO CHILLS, NO FEVER, NO WEAKNESS, NO DIAPHORESIS, NO MALAISE. HEAD/FACE: NO SIGNS OF TRAUMA. EENT: NO EYE PAIN, NO BLURRED VISION, NO TEARING, NO DOUBLE VISION, NO EAR PAIN, NO EAR DISCHARGE, NO NOSE PAIN, NO NASAL CONGESTION, NO THROAT PAIN, NO THROAT SWELLING, NO MOUTH PAIN. RESPIRATORY: NO COUGH, NO ORTHOPNEA, NO SOB, NO STRIDOR, NO WHEEZING. CARDIOVASCULAR: NO CHEST PAIN, NO EDEMA, NO PALPITATIONS, NO SYNCOPE. GASTROINTESTINAL/ABDOMINAL: NO ABDOMINAL PAIN, NO CONSTIPATION, NO DIARRHEA, NO NAUSEA, NO VOMITING. GENITOURINARY: NO ABNORMAL DISCHARGE, DYSURIA, NO FREQUENT URINATION, NO HEMATURIA. NO COMPLAINTS OF PAIN IN THE GENITALS. MUSCULOSKELETAL: NO BACK PAIN, NO GOUT, NO JOINT PAIN, NO JOINT SWELLING, NO MUSCLE PAIN, NO MUSCLE STIFFNESS, NO NECK PAIN. INTEGUMENTARY: NO CHANGE IN COLOR, NO CHANGE IN HAIR/NAILS, NO DRYNESS, NO LESION, NO LUMPS, NO RASH. NEUROLOGICAL/PSYCH: NO ANXIETY, NOT DEPRESSED, NO EMOTIONAL PROBLEM, NO H EADACHE, NO NUMBNESS, NO PRE-EXISTING DEFICIT, NO HISTORY OF SEIZURES, NO TREMORS, NO WEAKNESS. HEMATOLOGIC/LYMPHATIC: NOT ANEMIC, NO HISTORY OF BLOOD CLOTS, NO APPARENT BLEEDING, NO BRUISING, GLANDS NOT SWOLLEN. ALL SYSTEMS NEGATIVE, EXCEPT NOTED. Physical Exam Physical Exam Dictation VITAL SIGNS: REVIEWED. GENERAL APPEARANCE: ALERT, ORIENTED X3, NO ACUTE DISTRESS, OBESE. HEAD AND FACE: NON-TRAUMATIC. EYES: PERRL, PINK CONJUNCTIVAS, EYELID NO TRAUMA, ANTERIOR CHAMBER CLEAR. EARS: PINNAS INTACT AND NO SIGNS OF TRAUMA OR ERYTHEMA. EAR CANALS CLEAR AND NO DISCHARGE. TMS NO ERYTHEMA. NOSE: NO DISCHARGE, NO BLEEDING. OROPHARYNX: MOUTH NORMAL, TEETH NO CARIES, TONGUE PINK. PHARYNX CLEAR, NO ERYTHEMA. TONSILS NO EXUDATES, NO ABSCESSES NOTED. MUCOUS MEMBRANE MOIST. NECK: SUPPLE, NON-TENDER, NO THYROMEGALY, NO MASSES, NO JVD, NO BRUITS. BREAST: DEFERRED. CHEST: NO TENDERNESS, NO CREPITUS, NO PARADOXICAL MOVEMENT, NO RETRACTIONS. LUNGS: CLEAR, WELL-VENTILATED, SYMMETRIC, NO RALES, NO WHEEZING, NO RHONCHI, NO STRIDOR, GOOD BREATH SOUNDS BILATERALLY. HEART: REGULAR RATE, REGULAR RHYTHM, NO MURMUR, NO GALLOPS. VASCULAR: NO PERIPHERAL EDEMA. ABDOMEN: SOFT, POSITIVE BOWEL SOUNDS, NONDISTENDED, NO GUARDING, NONTENDER, NO REBOUND, NO MASSES NO HEPATOMEGALY, NO SPLENOMEGALY, NO MOHAMUD'S SIGN, NO HERNIAS. RECTAL: DEFERRED. GENITAL: DEFERRED. NEUROLOGICAL: NORMAL SPEECH, GROSS MOTOR FUNCTION INTACT, GROSS SENSORY FUNCTION INTACT. MUSCULOSKELETAL: NECK NONTENDER, FULL RANGE OF MOTION, BACK NONTENDER, FULL RANGE OF MOTION. EXTREMITIES: NONTENDER, FULL RANGE OF MOTION. SKIN: COLOR PINK, DRY, NO TURGOR, NO RASH, NO LACERATIONS, NO ABRASIONS, NO CONTUSIONS. LYMPHATICS: DEFERRED. Results Laboratory and Microbiology Lab and Micro Result Laboratory Tests Test 12/20/24 12:15 Urine Color LIGHT-YELLOW (YELLOW) Urine Appearance CLEAR (CLEAR) Urine pH 6.5 (5.0-8.0) Urine Specific [place] 1.016 (1.001-1.031) Urine Protein NEGATIVE mg/dL (NEGATIVE) Urine Glucose (UA) NEGATIVE mg/dL (NEGATIVE) Urine Ketones NEGATIVE mg/dL (NEGATIVE) Urine Occult Blood NEGATIVE (NEGATIVE) Urine Nitrate NEGATIVE (NEGATIVE) Urine Bilirubin NEGATIVE mg/dL (NEGATIVE) Urine Urobilinogen 0.2 mg/dL (0.2-1.0) Urine Leukocyte Esterase NEGATIVE Venkatesh/uL Urine RBC 0-1 /HPF (0-1) Urine WBC 0-1 /HPF (0-1) Urine Squamous Epithelial Cells RARE /HPF (0-2) Urine Bacteria None /HPF (None Seen) Labs Reviewed?: Yes EKG/XRAY/US/CT/MRI Ultrasound Comment IMAGING REPORT Signed PATIENT: ALFREDA GREY MR#: [id number] : 1990 SEX: M AGE: 34 LOCATION: [facility] ORDER 1231 STATUS: [facility] REPORT#: [id number] SERVICE 1230 REASON: TESTICLE PAIN ORDERING PHYSICIAN: DENISE MARTINEZ MD PROCEDURE: SCROTUM - US SCROTUM & CONTENTS EXAM: US Scrotum. CLINICAL HISTORY: TESTICLE PAIN TECHNIQUE: Real-time ultrasound of the scrotum with color Doppler and image documentation. COMPARISON: None provided. FINDINGS: RIGHT TESTICLE: Normal in size (measures 3.9 x 2.3 x 2.9 cm) and echogenicity. No abnormal mass. Normal Doppler flow. LEFT TESTICLE: Normal in size (measuring 4 x 1.9 x 2.9 cm) and echogenicity. No abnormal mass. Normal Doppler flow. EPIDIDYMIDES: Visualized aspects of both epididymides appear within normal limits. Please note that the tail of the right epididymis is obscured. SCROTUM: Unremarkable. No hydrocele, varicocele, or extratesticular mass seen. IMPRESSION: 1. No acute scrotal abnormalities. /[place] DICTATED BY: TOMY GRIFFIN Jr., MD DATE: 12/20/24 1508 ELECTRONICALLY SIGNED BY: TOMY GRIFFIN Jr., MD DATE: 12/20/24 1508 MDM MDM: DIFFERENTIAL DIAGNOSIS: DYSURIA, RATIONALE: TESTS CONSIDERED AND ORDERED SECONDARY TO SHARED DECISION MAKING INCLUDE: PREVIOUS OUTSIDE RECORDS REVIEWED: OLD ER VISITS. RISK OF COMPLICATION AND/OR MORBIDITY OR MORTALITY OF PATIENT MANAGEMENT: NONE MEDICATIONS-PER MEDICATION RECONCILIATION NEED FOR HOSPITALIZATION: PATIENT DOES NOT MEET CRITERIA FOR HOSPITALIZATION. NEED FOR EMERGENCY MAJOR/MINOR SURGERY: NO PATIENT IS A 34-YEAR-OLD MALE COMING IN TO BE EVALUATED FOR DYSURIA. PER PATIENT HE WAS CONCERNED HE MIGHT HAVE AN STD. LABORATORY WORKUP WITHIN NORMAL LIMITS PATIENT HAD AN ULTRASOUND PERFORMED WHICH DID NOT DISCLOSE ACUTE FINDINGS. URINE WAS SENT FOR GC RULE OUT WE WILL BE NOTIFIED IF ANYTHING ABNORMAL IN HIS PRESENT. ED Course Orders Procedure Category Date Status Time Us Scrotum & Contents US 12/20/24 Resulted 12:30 Chlamydia & Gc Pcr JOSÉ MANUEL 12/20/24 In Process 14:28 Urinalysis LAB 12/20/24 Complete W/Microscopic 14:28 Vital Signs Date Time Temp Pulse Resp B/P (MAP) Pulse Ox O2 Delivery O2 Flow Rate FiO2 12/20/24 13:44 98.1 82 16 124/82 98 Room Air* 0 21 12/20/24 12:12 98.1 85 16 120/80 98 Room Air* 0 21 12/20/24 12:05 98.1 90 18 121/81 98 Room Air 0 DX & DISP Disposition: Discharge Departure Impression: Primary Impression: Dysuria Condition: Stable Additional Instructions: FOLLOW-UP WITH PRIMARY CARE PROVIDER IN 1 TO 2 DAYS. TAKE MEDICATIONS DIRECTED HERE IN THE EMERGENCY ROOM. OKAY TO CONTINUE HOME MEDICATIONS UNLESS OTHERWISE DISCUSSED DURING YOUR VISIT IN THE EMERGENCY ROOM TODAY. RETURN TO YOUR NEAREST EMERGENCY ROOM IF SYMPTOMS WORSEN OR IF THERE IS NO IMPROVEMENT. CALL 911 IF YOU NEED IMMEDIATE ASSISTANCE. TAKE TYLENOL [id number]-[id number] NEEDED AND IF NO CONTRAINDICATIONS ARE PRESENT. INCREASE ORAL HYDRATION. A WOUND CULTURE OR URINE CULTURE WAS ORDERED HERE IN THE EMERGENCY ROOM DEPARTMENT PLEASE FOLLOW-UP WITH PRIMARY CARE PROVIDER AND ADVISE THEM TO GET REPORTS FROM OUR FACILITY. IF YOU HAD ANY VENKATA WRAP/SPLINTS THAT WERE APPLIED HERE, PLEASE DO NOT REMOVE THEM UNTIL YOU SEE YOUR PRIMARY CARE OR SPECIALTY. REFERRALS: Referrals: KEVIN ANN (PCP) Time of Disposition: 15:07 DENISE MARTINEZ MD Dec 20, 2024 14:31
[2024-12-20 14:43] LABS: APPEARANCE,URINE CLEAR (CLEAR); GLUCOSE, URINE (UA) NEGATIVE (NEGATIVE); LEUKOCYTE ESTERASE ,URINE NEGATIVE Leu/uL (NEGATIVE); NITRATE,URINE NEGATIVE (NEGATIVE); OCCULT BLOOD,URINE NEGATIVE (NEGATIVE); SQUAMOUS EPITHELIAL CELL,UR RARE /HPF (0-2)
[2024-12-20 15:07] VITALS: BP 124/82; PULSE 82; RESP 16; TEMP 98.1; O2SAT 98
== END 2024-12-20 15:13 | disposition home or self-care (01) ==
LOC: EDH 12:02
DX: R30.0 Dysuria (principal); Z79.52 Long term (current) use of systemic steroids; Z79.899 Other long term (current) drug therapy
CPT/HCPCS: 76870; 81001; 87491; 87591; 99284

== ENCOUNTER 2025-04-21 09:40 | Emergency (ER) | payer SELFPAY ==
[~2025-04-21] VITALS: Ht 182.9 cm; Wt 90.3 kg
[2025-04-21 10:19] LABS: IMMATURE GRANULOCYTE ABSOLUTE 0.05 K/uL (0-1); NUCLEATED RED BLOOD CELLS 0.0 % (0.0-0.19); PLATELET COUNT (AUTO) 199 K/uL (130-400); RED BLOOD CELL COUNT(AUTO) 5.31 MIL/uL (4.50-6.20); RED CELL DISTRIBUTION WIDTH 13.2 % (11.0-15.5); WHITE BLOOD COUNT (AUTO) 8.0 K/uL (4.8-10.8)
[2025-04-21 10:31] LABS: CREATININE 1.1 mg/dL (0.5-1.3); GLOMERULAR FILTR. RATE CALC 90.0 mL/min (>90); GLUCOSE,RANDOM 101.0 mg/dL (70-105); SODIUM SERUM 139.0 mmol/L (136-145); UREA NITROGEN, BLOOD 11.0 mg/dL (7-18)
[2025-04-21 10:32] LABS: INR 1.08 (0.85-1.15)
[2025-04-21 12:06] LABS: APPEARANCE,URINE CLEAR (CLEAR); GLUCOSE, URINE (UA) NEGATIVE (NEGATIVE); LEUKOCYTE ESTERASE ,URINE NEGATIVE Leu/uL (NEGATIVE); NITRATE,URINE NEGATIVE (NEGATIVE); OCCULT BLOOD,URINE NEGATIVE (NEGATIVE)
--- NOTE | 2025-04-21 12:13 | HMCIMG ---
EXAM: CT Abdomen and Pelvis Without IV contrast CLINICAL HISTORY: Renal calculus TECHNIQUE: Axial computed tomography images of the abdomen and pelvis without intravenous contrast. CONTRAST: No IV contrast. COMPARISON: None provided. FINDINGS: LUNG BASES: The lung bases appear clear. No pleural effusions are seen. LIVER: Unremarkable. GALLBLADDER AND BILE DUCTS: The gallbladder appears within normal limits. No radioopaque gallstones are seen. No biliary ductal dilatation is evident. PANCREAS: Unremarkable. SPLEEN: Unremarkable. ADRENAL GLANDS: Unremarkable. KIDNEYS, URETERS, AND BLADDER: 1 mm obstructing right renal collecting system stone. No additional urinary calculi. No hydronephrosis. STOMACH AND BOWEL: Unremarkable appearance of the stomach and bowel. No evidence of bowel obstruction. No evidence suggesting enteritis or colitis. APPENDIX: Normal appendix. PERITONEUM: No free fluid. No free air. LYMPH NODES: No lymphadenopathy is evident. REPRODUCTIVE: Unremarkable as visualized. VASCULATURE: No evidence of abdominal aortic aneurysm. BONES: No aggressive appearing osseous lesion. No acute osseous pathology evident. IMPRESSION: 1. 1 mm obstructing right renal collecting system stone. 2. No additional urinary calculi. No hydronephrosis. 3. No bowel obstruction or inflammation. Normal appendix. /[place]
[2025-04-21] MEDS ORDERED: KETO10TA2 PO (12:21)
--- NOTE | 2025-04-21 12:21 | ERN ---
General Chief Complaint: Flank Pain Stated Complaint: LEFT FLANK PAIN Time Seen by MD: 09:54 History of Present Illness Initial Comments 34-year-old male came in for flank pain. Allergies: Coded Allergies: No Known Allergies (Unverified Allergy, Unknown, 01/18/22) Home Meds Active Scripts Cephalexin Monohydrate (Keflex) 500 Mg Cap, 1 CAP PO BID for 10 Days, #20 CAP 0 Refills Prov:DENISE MARTINEZ MD 12/11/24 Ketorolac Tromethamine (Ketorolac Tromethamine) 10 Mg Tablet, 1 TAB PO Q6HPRN PRN for pain for 5 Days, #20 TAB 0 Refills Prov:DENISE MARTINEZ MD 12/11/24 Naproxen (Naprosyn) 500 Mg Tablet, 500 MG PO BIDPC for 10 Days, #20 TAB 0 Refills Prov:MONICA PIERSON CNP 11/28/24 Prednisone (Prednisone) 20 Mg Tablet, 1 TAB PO DAILY for 5 Days, #5 TAB 0 Refills TAKE 1 TAB BY MOUTH THREE TIMES PER DAY X3 DAYS, THEN TAKE 1 TAB BY MOUTH TWICE A DAY X2 DAYS, THEN TAKE 1 TAB BY MOUTH ONCE A DAY X1 DAY. Prov:ERIC THORPE MD 03/05/24 Azithromycin (Azithromycin) 250 Mg Tablet, 250 MG PO AD for cough for 5 Days, #6 TAB Prov:ERIC THORPE MD 03/05/24 Oseltamivir Phosphate (Tamiflu) 75 Mg Cap, 75 MG PO BID for 5 Days, #10 CAP Prov:LUCIA DUBON NP 01/18/22 Past Medical History Past Medical History: Anxiety, Kidney Stone Past Surgical History: None ROS Dictation Flank pain Physical Exam General Appearance: (+) no apparent distress, (+) apparent distress Orientation: (+) alert, (+) oriented x 3 Respiratory: (+) chest non-tender, (+) lungs clear Heart: (+) regular, (+) no gallop Gastrointestinal: (+) soft, (+) non-tender, (+) no organomegaly, (+) bowel sound present Results Laboratory and Microbiology Lab and Micro Result Laboratory Tests Test 04/21/25 10:04 04/21/25 11:52 White Blood Count 8.0 K/uL (4.8-10.8) Red Blood Count 5.31 MIL/uL (4.50-6.20) Hemoglobin 14.9 g/dL (14.0-18.0) Hematocrit 45.6 % (42-54) Mean Corpuscular Volume 85.9 fL (79-99) Mean Corpuscular Hemoglobin 28.1 pg (27.0-33.0) Mean Corpuscular Hemoglobin Concent 32.7 g/dL (32.0-36.0) Red Cell Distribution Width 13.2 % (11.0-15.5) Platelet Count 199 K/uL (130-400) Mean Platelet Volume 11.1 fL (7.5-10.5) H Immature Granulocyte % (Auto) 0.6 % (0-1) Neutrophils (%) (Auto) 55.3 % (40.0-77.0) Lymphocytes (%) (Auto) 30.2 % (21.0-51.0) Monocytes (%) (Auto) 7.8 % (3.0-13.0) Eosinophils (%) (Auto) 5.3 % (0.0-8.0) Basophils (%) (Auto) 0.8 % (0.0-5.0) Neutrophils # (Auto) 4.4 K/uL (1.8-7.7) Lymphocytes # (Auto) 2.4 K/uL (1.0-4.8) Monocytes # (Auto) 0.6 K/uL (0.1-1.0) Eosinophils # (Auto) 0.42 K/uL (0.00-0.70) Basophils # (Auto) 0.06 K/uL (0.00-0.20) Absolute Immature Granulocyte (auto 0.05 K/uL (0-1) Nucleated Red Blood Cells 0.0 % (0.0-0.19) Prothrombin Time 11.4 SEC (9.6-11.6) Prothromb Time International Ratio 1.08 (0.85-1.15) Activated Partial Thromboplast Time 27.3 SEC (26.3-35.5) Sodium Level 139 mmol/L (136-145) Potassium Level 3.8 mmol/L (3.5-5.1) Chloride Level 104 mmol/L (101-111) Carbon Dioxide Level 29 mmol/L (21-32) Blood Urea Nitrogen 11 mg/dL (7-18) Creatinine 1.1 mg/dL (0.5-1.3) Glomerular Filtration Rate Calc 90 mL/min (>90) Random Glucose 101 mg/dL (70-105) Total Calcium 8.8 mg/dL (8.5-10.1) Urine Color LIGHT-YELLOW (YELLOW) Urine Appearance CLEAR (CLEAR) Urine pH 7.0 (5.0-8.0) Urine Specific [place] 1.015 (1.001-1.031) Urine Protein NEGATIVE mg/dL (NEGATIVE) Urine Glucose (UA) NEGATIVE mg/dL (NEGATIVE) Urine Ketones NEGATIVE mg/dL (NEGATIVE) Urine Occult Blood NEGATIVE (NEGATIVE) Urine Nitrate NEGATIVE (NEGATIVE) Urine Bilirubin NEGATIVE mg/dL (NEGATIVE) Urine Urobilinogen 0.2 mg/dL (0.2-1.0) Urine Leukocyte Esterase NEGATIVE Venkatesh/uL Urine RBC 0-1 /HPF (0-1) Urine WBC 0-1 /HPF (0-1) Urine Bacteria None /HPF (None Seen) MDM MDM: Differential diagnosis: Rationale: Tests considered and ordered secondary to shared decision making include: Previous outside records reviewed: Old ER visits. Risk of complication and/or morbidity or mortality of patient management: None Medications-Per medication reconciliation Need for hospitalization: Patient does not meet criteria for hospitalization. Need for emergency major/minor surgery: No There are no social concerns with this patient. Prescription drug management Prescriptions will include symptomatic care Patient's prior external medical records from other ER visits were reviewed by me as indicated. Prior testing and results from previous visits were reviewed. Prior tests were taken into account with medical decision making and resource utilization, independent historian/historians were used to obtain complete medical history. I independently interpreted the test that were performed, results were reviewed by me and considered findings on radiology if ordered. Medical management and examination interpretation discussions were had by me with other qualified healthcare professionals as indicated for the patient's care. ED Course Orders Procedure Category Date Status Time Cbc With Differential LAB 04/21/25 Complete 09:54 Basic Metabolic Panel LAB 04/21/25 Complete 09:54 Pt And Ptt LAB 04/21/25 Complete 09:54 Urinalysis LAB 04/21/25 Complete W/Microscopic 09:54 Ondansetron 4mg Inj PHA 04/21/25 Complete (Zofran 4mg Inj) 10:00 Ketorolac PHA 04/21/25 Complete Tromethamine 30mg/Ml 10:00 Morphine 4mg Syg PHA 04/21/25 Complete (Morphine 4mg Syg) 10:00 Ct Abdomen/Pelvis W/O CT 04/21/25 Resulted Contrast 11:38 Current Medications Medications (Trade) Dose Ordered Sig/Jeanne Route PRN Reason Start Time Stop Time Status Last Admin Dose Admin Ketorolac Tromethamine (toRADol) 30 mg ONCE ONCE IVP 04/21/25 10:00 04/21/25 10:01 DC 04/21/25 11:22 Morphine Sulfate (morPHINE 4MG SYG) 2 mg ONCE ONCE IVP 04/21/25 10:00 04/21/25 10:01 DC Ondansetron HCl (zoFRAN 4MG INJ) 4 mg ONCE ONCE IVP 04/21/25 10:00 04/21/25 10:01 DC 04/21/25 11:20 Vital Signs Date Time Temp Pulse Resp B/P (MAP) Pulse Ox O2 Delivery O2 Flow Rate FiO2 04/21/25 11:27 98.4 72 16 116/70 98 Room Air* 0 21 04/21/25 09:40 98.1 94 18 150/99 99 Room Air DX & DISP Disposition: Discharge Departure Impression: Primary Impression: Flank pain Condition: Stable Scripts Ketorolac Tromethamine (Ketorolac Tromethamine) 10 Mg Tablet 10 MG PO BID for 5 Days, #10 TAB Prov: FAROOQ FORBES MD 04/21/25 Referrals: KEVIN ANN (PCP) FAROOQ FORBES MD Apr 21, 2025 12:21
[2025-04-21 12:36] VITALS: BP 123/78; PULSE 83; RESP 19; TEMP 98.2; O2SAT 98
== END 2025-04-21 12:30 | disposition home or self-care (01) ==
LOC: EDH 09:40
DX: R10.A2 Flank pain, left side (principal); F41.9 Anxiety disorder, unspecified; Z87.442 Personal history of urinary calculi; Z79.52 Long term (current) use of systemic steroids
CPT/HCPCS: 99285; 74176; 96374; 96375; 80048; 85025; 85610; 85730; 81001; 36415; J1885; J2405; J2270